=== PATIENT | female | born 1965 | race Two or more races ===

== ENCOUNTER 2017-03-21 16:00 | Emergency (ER) | payer OTHER ==
[~2017-03-21] VITALS: Ht 177.8 cm; Wt 60.8 kg
[2017-03-21] MEDS ORDERED: IBUPROFEN 600 MG TABLET PO ONE (17:45)
[2017-03-21] MEDS ORDERED: IBUPROFEN 600 MG TABLET ONE (18:01)
[2017-03-21 18:20] LABS: BASOPHILS % (AUTO) 1.1 % (0.0-2.0); EOSINOPHILS % (AUTO) 0.7 % (0.0-7.0); HEMATOCRIT 37.2 % (37-47); LYMPHOCYTES # (AUTO) 0.8 K/uL (20.0-40.0); LYMPHOCYTES % (AUTO) 24.7 % (20.5-51.5); MEAN CORPUSCULAR HEMOGLOBIN 30.3 UUG (27.0-31.0); MEAN CORPUSCULAR HGB CONC 35 g/dL (32.0-37.0); MEAN CORPUSCULAR VOLUME 86.7 FL (81.0-99.0); MONOCYTES # (AUTO) 0.5 K/uL (2.0-10.0); MONOCYTES % (AUTO) 15.8 % (0.0-11.0); NEUTROPHILS % (AUTO) 57.7 % (38.5-71.5); PLATELET COUNT (AUTO) 151 K/UL (150-450); RED BLOOD CELL COUNT(AUTO) 4.29 MIL/UL (4.2-5.4); RED CELL DISTRIBUTION WIDTH 12.2 % (11.5-14.5); WHITE BLOOD COUNT (AUTO) 3.3 K/UL (4.0-11.2)
[2017-03-21 18:29] LABS: CALCIUM 8.7 mg/dL (8.5-10.1); CREATININE 0.7 mg/dL (0.6-1.3); POTASSIUM 3.7 mmol/L (3.5-5.1)
[2017-03-21 18:36] LABS: TROPONIN I < 0.017 ng/mL (0.00-0.056)
[2017-03-21 18:39] LABS: BAND % (MANUAL) 5 % (0-10); EOSINOPHILS % (MANUAL) 1 % (0-8); LYMPHOCYTES % (MANUAL) 27 % (20-40); MONOCYTES % (MANUAL) 16 % (2-10); NEUTROPHILS % (MANUAL) 51 % (42-75); PLATELET ESTIMATE ADEQUATE
[2017-03-21 18:40] LABS: LACTIC ACID 0.8 mmol/L (0.4-2.0)
[2017-03-21 18:41] LABS: ALBUMIN 3.6 g/dL (3.4-5.0); BILIRUBIN,DIRECT 0.1 mg/dL (0.0-0.2); BILIRUBIN,TOTAL 0.3 mg/dL (0.2-1.0); TOTAL PROTEIN, SERUM 6.8 g/dL (6.4-8.2)
[2017-03-21 18:51] VITALS: BP 111/69
--- NOTE | 2017-03-21 18:51 | NUR ---
Patient discharged to home in stable conditon. Written and verbal after care instructions given. Patient verbalizes understanding of instructions.pt walks in steady gait, accompaned by so. pt says feels better.
== END 2017-03-21 18:52 | disposition home or self-care (01) ==
LOC: ER 16:00
DX: J20.9 Acute bronchitis, unspecified (principal); G43.909 Migraine, unspecified, not intractable, without status migrainosus
CPT/HCPCS: 36415; 71010; 80048; 80076; 83605; 83880; 84484; 85025; 87040 ×2; 99285; A4663; 70030-TC

== ENCOUNTER 2018-02-06 14:39 | Emergency (ER) | payer OTHER ==
[~2018-02-06] VITALS: Ht 170.2 cm; Wt 60.8 kg
[2018-02-06] MEDS ORDERED: ONDANSETRON 4 MG/2 ML VIAL ONE (15:13)
[2018-02-06] MEDS ORDERED: ONDANSETRON 4 MG/2 ML VIAL IV ONE (15:15)
[2018-02-06] MEDS ORDERED: IV NORMAL SALINE 1000 ML BAG IV ONE (15:15)
[2018-02-06 15:25] LABS: BASOPHILS # (AUTO) 0.1 K/uL (0.0-8.0); BASOPHILS % (AUTO) 1.2 % (0.0-2.0); EOSINOPHILS # (AUTO) 0.1 K/uL (0.0-0.7); EOSINOPHILS % (AUTO) 2.2 % (0.0-7.0); HEMATOCRIT 42.3 % (31.2-41.9); HEMOGLOBIN 14.1 g/dL (10.9-14.3); LYMPHOCYTES # (AUTO) 1.9 K/uL (20.0-40.0); LYMPHOCYTES % (AUTO) 36.1 % (20.5-51.5); MEAN CORPUSCULAR HEMOGLOBIN 30.1 uug (24.7-32.8); MEAN CORPUSCULAR HGB CONC 33 g/dL (32.3-35.6); MEAN CORPUSCULAR VOLUME 90.1 fL (75.5-95.3); MONOCYTES # (AUTO) 0.4 K/uL (2.0-10.0); MONOCYTES % (AUTO) 8.1 % (0.0-11.0); NEUTROPHILS # (AUTO) 2.7 K/uL (1.8-8.9); NEUTROPHILS % (AUTO) 52.4 % (38.5-71.5); PLATELET COUNT (AUTO) 176 K/uL (179-408); WHITE BLOOD COUNT (AUTO) 5.2 K/uL (3.8-11.8)
[2018-02-06 15:34] LABS: CREATININE 0.7 mg/dL (0.6-1.3); POTASSIUM 4.1 mmol/L (3.5-5.1)
--- NOTE | 2018-02-06 15:45 | NUR ---
"I feel better." per patient's verbalization, pending results and disposition
[2018-02-06 15:47] LABS: BILIRUBIN,DIRECT 0.1 mg/dL (0.0-0.2); BILIRUBIN,TOTAL 0.4 mg/dL (0.2-1.0); TOTAL PROTEIN, SERUM 7.2 g/dL (6.4-8.2)
[2018-02-06 16:00] LABS: *URINE HCG, QUAL NEGATIVE (NEGATIVE)
[2018-02-06 16:03] LABS: *BLOOD, URINE 2+ (NEGATIVE); *CLARITY,URINE SLIGHTLY HAZY (CLEAR); *COLOR,URINE YELLOW (YELLOW); *PROTEIN,URINE NEGATIVE (NEGATIVE); PH,URINE 7.5 (5.0-8.0); UGLUCOSE NEGATIVE (NEGATIVE)
[2018-02-06 16:04] LABS: *BILIRUBIN,URIN NEGATIVE (NEGATIVE); *KETONES,URINE NEGATIVE (NEGATIVE); *UROBILINOGEN,URINE 0.2 E.U./dl (NORMAL); BACTERIA,URINE FEW /HPF (NONE SEEN); LEUKOCYTE ESTERASE ,URINE NEGATIVE (NEGATIVE); NITRITE, URINE NEGATIVE (NEGATIVE); RBC,URINE 20-50 /HPF (0-3); SQUAMOUS EPITHELIAL CELL,UR MODERATE /HPF (NONE SEEN); WBC,URINE 0-3 /HPF (0-3)
--- NOTE | 2018-02-06 16:44 | NUR ---
IV removed. Catheter intact and site benign. Pressure and 4x4 gauze applied to site. No bleeding noted. Patient discharged to home in stable conditon. Written and verbal after care instructions given. Patient verbalizes understanding of instructions.
== END 2018-02-06 16:45 | disposition home or self-care (01) ==
LOC: ER 14:40
DX: K21.0 Gastro-esophageal reflux disease with esophagitis (principal); Z90.49 Acquired absence of other specified parts of digestive tract
CPT/HCPCS: 36415; 70030-TC; 71045; 83690; 84703; 85025; 93005; A4663; J2405

== ENCOUNTER 2019-02-02 00:46 | Emergency (ER) | payer BC, OTHER ==
[~2019-02-02] VITALS: Ht 177.8 cm; Wt 60.8 kg
[2019-02-02] MEDS ORDERED: OMEPRAZOLE DR 40 MG CAPSULE (01:11)
[2019-02-02] MEDS ORDERED: LEVOFLOXACIN 500 MG TABLET (01:11)
[2019-02-02] MEDS ORDERED: METRONIDAZOLE 250 MG TABLET PO (01:11)
--- NOTE | 2019-02-02 01:42 | NUR ---
DR GOLDSMITH INTO EVAL PATIENT
[2019-02-02 02:10] LABS: BASOPHILS # (AUTO) 0.1 K/uL (0.0-8.0); EOSINOPHILS # (AUTO) 0.1 K/uL (0.0-0.7); EOSINOPHILS % (AUTO) 2.7 % (0.0-7.0); HEMATOCRIT 39.2 % (31.2-41.9); HEMOGLOBIN 13.2 g/dL (10.9-14.3); LYMPHOCYTES # (AUTO) 2.3 K/uL (20.0-40.0); LYMPHOCYTES % (AUTO) 42.9 % (20.5-51.5); MEAN CORPUSCULAR HGB CONC 34 g/dL (32.3-35.6); MEAN CORPUSCULAR VOLUME 89.3 fL (75.5-95.3); MONOCYTES # (AUTO) 0.5 K/uL (2.0-10.0); MONOCYTES % (AUTO) 9.6 % (0.0-11.0); NEUTROPHILS # (AUTO) 2.3 K/uL (1.8-8.9); NEUTROPHILS % (AUTO) 43.8 % (38.5-71.5); PLATELET COUNT (AUTO) 154 K/uL (179-408); RED BLOOD CELL COUNT(AUTO) 4.39 MIL/uL (3.63-4.92); WHITE BLOOD COUNT (AUTO) 5.3 K/uL (3.8-11.8)
[2019-02-02] MEDS ORDERED: IBUPROFEN 800 MG TABLET PO ONE (02:15)
[2019-02-02 02:22] LABS: CREATININE 0.7 mg/dL (0.6-1.3)
[2019-02-02] MEDS ORDERED: IBUPROFEN 800 MG TABLET ONE (02:24)
[2019-02-02 02:35] LABS: BILIRUBIN,DIRECT 0.1 mg/dL (0.0-0.2); BILIRUBIN,TOTAL 0.2 mg/dL (0.2-1.0); TOTAL PROTEIN, SERUM 6.9 g/dL (6.4-8.2)
--- NOTE | 2019-02-02 03:20 | NUR ---
PATIENT STATES "I FEEL BETTER. I WOULD LIKE TO GO HOME." NO DISTRESS NOTED
--- NOTE | 2019-02-02 03:50 | NUR ---
Patient discharged to home in stable conditon WITH TAKING PATIENT HOME. Written and verbal after care instructions given. Patient verbalizes understanding of instructions. WALKED OUT OF ER WITH NO DISTRESS NOTED
[2019-02-02 03:53] VITALS: BP 118/75
== END 2019-02-02 03:54 | disposition home or self-care (01) ==
LOC: ER 00:47
DX: R07.89 Other chest pain (principal); F17.200 Nicotine dependence, unspecified, uncomplicated; Z79.2 Long term (current) use of antibiotics; Z79.899 Other long term (current) drug therapy
CPT/HCPCS: 36415; 70030-TC; 71045; 85025; 85730; 93005; A4663

== ENCOUNTER 2019-04-05 12:19 | Emergency (ER) | payer BC ==
[~2019-04-05] VITALS: Ht 172.7 cm; Wt 59.9 kg
[~2019-04-05 12:19] MED LIST: LEVOFLOXACIN 500 MG TABLET; METRONIDAZOLE 250 MG TABLET PO; OMEPRAZOLE DR 40 MG CAPSULE
--- NOTE | 2019-04-05 12:35 | NUR ---
ALEJANDRO BLANCA AT BEDSIDE FOR MSE.
--- NOTE | 2019-04-05 13:07 | NUR ---
DR MCDANIELS MADE PATIENT AWARE OF TEST RESULTS.
--- NOTE | 2019-04-05 13:18 | NUR ---
Patient discharged to home in stable conditon. Written and verbal after care instructions given. Patient verbalizes understanding of instructions.
[2019-04-05 13:19] VITALS: BP 109/77
== END 2019-04-05 13:20 | disposition home or self-care (01) ==
LOC: ER 12:20
DX: J01.90 Acute sinusitis, unspecified (principal); J20.9 Acute bronchitis, unspecified; F17.290 Nicotine dependence, other tobacco product, uncomplicated; Z79.899 Other long term (current) drug therapy
CPT/HCPCS: 71045; A4663

== ENCOUNTER 2019-12-06 21:39 | Emergency (ER) | payer BC ==
[~2019-12-06] VITALS: Ht 170.2 cm; Wt 61.7 kg
[2019-12-06] MEDS ORDERED: IBUPROFEN 600 MG TABLET ONE (23:30)
[2019-12-06] MEDS ORDERED: IBUPROFEN 600 MG TABLET PO ONE (23:30)
[2019-12-06 23:36] LABS: EOSINOPHILS % (AUTO) 0.6 % (0.0-7.0); HEMATOCRIT 39.9 % (31.2-41.9); HEMOGLOBIN 13.5 g/dL (10.9-14.3); LYMPHOCYTES # (AUTO) 0.7 K/uL (20.0-40.0); LYMPHOCYTES % (AUTO) 24.1 % (20.5-51.5); MEAN CORPUSCULAR HEMOGLOBIN 30.4 uug (24.7-32.8); MEAN CORPUSCULAR HGB CONC 34 g/dL (32.3-35.6); MEAN CORPUSCULAR VOLUME 90.1 fL (75.5-95.3); MONOCYTES # (AUTO) 0.7 K/uL (2.0-10.0); MONOCYTES % (AUTO) 21.9 % (0.0-11.0); NEUTROPHILS # (AUTO) 1.6 K/uL (1.8-8.9); NEUTROPHILS % (AUTO) 52.4 % (38.5-71.5); PLATELET COUNT (AUTO) 127 K/uL (179-408); RED BLOOD CELL COUNT(AUTO) 4.43 MIL/uL (3.63-4.92)
[2019-12-06 23:46] LABS: CREATININE 0.8 mg/dL (0.6-1.3); POTASSIUM 3.6 mmol/L (3.5-5.1)
[2019-12-07 00:34] VITALS: BP 118/73
--- NOTE | 2019-12-07 00:34 | NUR ---
Patient discharged to home in stable conditon. Written and verbal after care instructions given. Patient verbalizes understanding of instructions. Patient ambulating with steady gait
[2019-12-07 01:36] LABS: LYMPHOCYTES % (MANUAL) 31 % (20-40); MONOCYTES % (MANUAL) 16 % (2-10); NEUTROPHILS % (MANUAL) 53 % (42-75)
== END 2019-12-07 00:33 | disposition home or self-care (01) ==
LOC: ER 21:41
DX: B34.9 Viral infection, unspecified (principal); J20.9 Acute bronchitis, unspecified; D72.819 Decreased white blood cell count, unspecified; D69.6 Thrombocytopenia, unspecified; F17.200 Nicotine dependence, unspecified, uncomplicated; Z90.49 Acquired absence of other specified parts of digestive tract; Z79.899 Other long term (current) drug therapy; Z79.2 Long term (current) use of antibiotics
CPT/HCPCS: 36415; 70030-TC; 71045; 85025; 93005; A4663